=== PATIENT | female | born 1985 | race Caucasian/White ===

== ENCOUNTER 2020-05-15 09:53 | Emergency (ER) | payer BC, SELFPAY ==
[2020-05-15 10:25] VITALS: BP 120/67; PULSE 98; RESP 18; TEMP 37.1; O2SAT 97; BMI 26.2
--- NOTE | 2020-05-15 10:58 | ED.MEDCLEAR ---
HPI - Medical Clearance General Chief complaint: Medical Clearance Stated complaint: BAT EXPOSURE Time Seen by Provider: 05/15/20 10:58 History of Present Illness HPI Narrative: Patient complains of bat exposure, she was nursing her baby and the bat flew down from the ceiling and brushed against her hand and possibly the baby, she is not sure if she was bitten, she does not think the baby was bitten and her caught the bat Related Information Allergies Allergy/AdvReac Type Severity Reaction Status Date / Time Sulfa (Sulfonamide Allergy Difficulty Verified 05/15/20 10:27 Antibiotics) Breathing Review of Systems Review of Systems: Positive for bat exposure negatives are no fever no chills no tingling no numbness no weakness no laceration no pain no dizziness no rash PMFSH Past Medical History Source: nursing notes reviewed Medical History (Updated 05/16/20 @ 00:00 by Background Daemon) No known health problems Social History Social History Advance Directives: No Advance Directives Information Provided: Yes Physical Exam Vital Signs: Vital Signs: Last Vital Signs Temp 98.7 F 05/15/20 10:25 Pulse 98 05/15/20 10:25 Resp 18 05/15/20 10:25 BP 120/67 05/15/20 10:25 Pulse Ox 97 05/15/20 10:25 Body Mass Index 26.2 General appearance is no acute distress Head is normocephalic atraumatic Neck is supple Respiratory no distress Extremities full range of motion x4 with no obvious wound Skin no rash Neuro no focal deficit Course Course Course Narrative: I contacted the epidemiology is on-call for the [facility] for advice about getting the back tested, the bat 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 They advised that they can do the test in 1 day if the animal is dropped off in the morning and they advised that the family bring the back to the office in [place], the says he will do it today and they brought the bat to be tested to [place] and if the testing is positive they know to return for rabies vaccination and immunoglobulin and if the test is negative no need for treatment Discharge Plan Discharge Clinical Impression: Exposure to bat without known bite Patient Disposition: Home, Self-Care Additional Instructions: The bat was caught so at this moment in time you do not need any rabies shots I spoke to the real estate services coordinator, phone number [phone] She told me that they can do rabies testing on the bat within 24 hours from when they received the bat The address is [address] [place] [address] in [place] in [place] There is a java developer with security clearance who can receive animals at any time so you can drop the animal at specimen receiving today or tomorrow or Saturday The bat needs to be refrigerated until tested but cannot be frozen if the bed is frozen the sample will be destroyed and testing cannot be done When you transport the bat to [place] you can bring it is in a cooler with ice packs If you want to fill out the form in advance you go to [email or web address] and look for rabies specimen submission form Rabies prophylaxis and vaccination can be given within week of exposure, so it is very safe to wait a few days and see the results of the bat specimen If the back is positive for rabies the whole family will need immunoglobulin and vaccination Interventions: ED Discharge Assessment Last Done: 05/15/20 11:13 Discharge Date/Time: 05/15/20 11:14
--- NOTE | 2020-05-15 11:07 | PC.NURSE ---
PTS FAMILY MEMBER WAS ABLE TO CAPTURE THE BAT AND BRING TO [employer]IMAL CONTROL FOR TESTING.
== END 2020-05-15 11:14 | disposition home or self-care (01) ==
PROVIDERS: Emergency Provider Emergency Medicine; PCP Internal Medicine
DX: Z20.3 Contact with and (suspected) exposure to rabies (principal)
CPT/HCPCS: 99283

== ENCOUNTER 2022-03-28 09:00 | Outpatient (RCR) | payer BC, SELFPAY | END 2022-03-28 10:31 | disposition home or self-care (01) | LOC: HO.PT 09:00 | PROVIDERS: Visit Provider Physician Assistant Medical | DX: N39.3 Stress incontinence (female) (male) (principal); Z98.890 Other specified postprocedural states | CPT/HCPCS: 97112; 97140; 97162; 97535 ==